=== PATIENT | male | born 1970 | race Caucasian/White ===

== ENCOUNTER 2017-12-04 13:55 | Emergency (ER) | payer OTHER ==
[~2017-12-04] VITALS: Ht 172.7 cm; Wt 77.1 kg
[2017-12-04] MEDS ORDERED: ROBAXIN500 MG PO (14:52)
[2017-12-04] MEDS ORDERED: NAPROSYN500 MG PO (14:52)
[2017-12-04 15:33] VITALS: BP 141/69
== END 2017-12-04 15:34 | disposition home or self-care (01) ==
LOC: M.ERS 13:55
DX: S16.1XXA Strain of muscle, fascia and tendon at neck level, initial encounter (principal); F17.200 Nicotine dependence, unspecified, uncomplicated; V43.54XA Car driver injured in collision with van in traffic accident, initial encounter; Y93.I9 Activity, other involving external motion; Y92.89 Other specified places as the place of occurrence of the external cause; Y99.8 Other external cause status

== ENCOUNTER 2017-12-06 14:07 | Emergency (ER) | payer OTHER ==
[~2017-12-06] VITALS: Ht 172.7 cm; Wt 77.1 kg
[~2017-12-06 14:07] MED LIST: NAPROSYN500 MG PO; ROBAXIN500 MG PO
[2017-12-06 14:17] VITALS: BP 105/72
[2017-12-06] MEDS ORDERED: HYDROCODONE-AP1 EAC6 PO (14:40)
== END 2017-12-06 14:51 | disposition home or self-care (01) ==
LOC: M.ERS 14:07
DX: S16.1XXA Strain of muscle, fascia and tendon at neck level, initial encounter (principal); M54.5 Low back pain; F17.200 Nicotine dependence, unspecified, uncomplicated; V89.2XXA Person injured in unspecified motor-vehicle accident, traffic, initial encounter; Y93.I9 Activity, other involving external motion; Y92.89 Other specified places as the place of occurrence of the external cause; Y99.8 Other external cause status

== ENCOUNTER 2018-05-09 22:12 | Emergency (ER) | payer OTHER ==
[~2018-05-09] VITALS: Ht 172.7 cm; Wt 72.6 kg
[~2018-05-09 22:12] MED LIST changes: +HYDROCODONE-AP1 EAC6 PO
[2018-05-09] MEDS ORDERED: CELEXA40 MG PO (22:21)
[2018-05-10] MEDS ORDERED: FLEXERIL PO (00:32)
[2018-05-10] MEDS ORDERED: NAPROSYN500 MG PO (00:32)
[2018-05-10] MEDS ORDERED: HYDROCODONE-AP1 EAC6 PO (00:32)
[2018-05-10 00:46] VITALS: BP 109/54
== END 2018-05-10 00:46 | disposition home or self-care (01) ==
LOC: M.ERS 22:12
DX: S20.212A Contusion of left front wall of thorax, initial encounter (principal); S00.01XA Abrasion of scalp, initial encounter; M79.642 Pain in left hand; Z86.19 Personal history of other infectious and parasitic diseases; V86.39XA Unspecified occupant of other special all-terrain or other off-road motor vehicle injured in traffic accident, initial encounter; Y93.89 Activity, other specified; Y92.89 Other specified places as the place of occurrence of the external cause; Y99.8 Other external cause status

== ENCOUNTER 2019-09-25 14:10 | Emergency (ER) | payer OTHER ==
[~2019-09-25] VITALS: Ht 172.7 cm; Wt 83.9 kg
[~2019-09-25 14:10] MED LIST changes: +CELEXA40 MG PO; +FLEXERIL PO
[2019-09-25] MEDS ORDERED: REMERON15 M2 PO (14:31)
[2019-09-25] MEDS ORDERED: TYLENOL WITH CO1 TA1 PO (15:41)
[2019-09-25 15:54] VITALS: BP 106/80
== END 2019-09-25 15:55 | disposition home or self-care (01) ==
LOC: M.ERS 14:10
DX: S61.212A Laceration without foreign body of right middle finger without damage to nail, initial encounter (principal); W22.8XXA Striking against or struck by other objects, initial encounter; Y93.89 Activity, other specified; Y92.89 Other specified places as the place of occurrence of the external cause; Y99.8 Other external cause status

== ENCOUNTER 2020-05-07 08:43 | Emergency (ER) | payer OTHER ==
[~2020-05-07] VITALS: Ht 172.7 cm; Wt 81.7 kg
[~2020-05-07 08:43] MED LIST changes: +REMERON15 M2 PO; +TYLENOL WITH CO1 TA1 PO
[2020-05-07 09:09] LABS: URINE BLOOD 3+ (Negative); URINE CLARITY SL CLOUDY; URINE COLOR YELLOW; URINE GLUCOSE-RANDOM NEGATIVE (Negative); URINE KETONES NEGATIVE (Negative); URINE LEUKOCYTES-REFLEX NEGATIVE (Negative); URINE NITRITE-REFLEX NEGATIVE (Negative); URINE PROTEIN TRACE (Negative); URINE SPECIFIC GRAVITY 1.015 (1.005-1.030); URINE UROBILINOGEN 0.2 E.U./dl (0.2-1.0)
[2020-05-07 09:12] LABS: ICTOTEST (BILI CONFIRMATORY) Negative (Negative); URINE BILIRUBIN 1+ (Negative)
[2020-05-07 09:23] LABS: AMORPHOUS PHOSPHATES Moderate /LPF (None Seen); BACTERIA-REFLEX None Seen /HPF (None Seen); CASTS None Seen /LPF (None Seen); SQUAMOUS 0-3 Few /LPF (0-3); URINE RBC >20 Many /HPF (0-2); URINE WBC-REFLEX 0-5 Rare /HPF (0-5)
[2020-05-07 09:30] LABS: ABSOLUTE BASOPHILS 0.1 thou/uL (0.0-0.2); ABSOLUTE EOSINOPHILS 0.5 thou/uL (0.0-0.7); ABSOLUTE LYMPHOCYTES 2.4 thou/uL (0.8-5.3); ABSOLUTE MONOCYTES 0.8 thou/uL (0.0-1.2); ABSOLUTE NEUTROPHILS 4.5 thou/uL (1.6-8.1); BASOPHILS 1.3 %; EOSINOPHILS 5.8 %; HEMATOCRIT 43.4 % (42.0-52.0); HEMOGLOBIN 15.4 gm/dL (14.0-18.0); LYMPHOCYTES 28.8 %; MCH 30.5 pg (26.0-34.0); MCHC 35.5 g/dL (28.0-37.0); MCV 85.8 fL (80.0-100.0); MONOCYTES 9.2 %; MPV 7.4 fl. (7.2-11.1); NUCLEATED RBCS 0 /100WBC; PLATELET COUNT* 257 thou/uL (150-400); POLYS 54.9 %; RBC 5.06 mil/uL (4.50-6.00); RDW-CV 13.2 % (10.5-14.5); WBC 8.2 thou/uL (4.0-11.0)
[2020-05-07 09:35] LABS: CALCIUM 8.9 mg/dL (8.5-10.1); CREATININE 1.2 mg/dL (0.6-1.3); POTASSIUM 3.8 mmol/L (3.5-5.1)
[2020-05-07 09:39] LABS: ALBUMIN 4.1 g/dL (3.4-5.0); TOTAL BILIRUBIN 0.2 mg/dL (<0.1-1.0)
[2020-05-07] MEDS ORDERED: TAMSULOSIN HCL0.4 MG PO (10:41)
[2020-05-07] MEDS ORDERED: PERCOCET 10-321 EAC1 PO (10:41)
[2020-05-07] MEDS ORDERED: CIPRO500 M1 PO (10:41)
[2020-05-07 10:49] VITALS: BP 135/86
== END 2020-05-07 10:50 | disposition home or self-care (01) ==
LOC: M.ERS 08:43
PROVIDERS: Family Medicine
DX: N20.0 Calculus of kidney (principal); Z90.49 Acquired absence of other specified parts of digestive tract; Z86.19 Personal history of other infectious and parasitic diseases

== ENCOUNTER 2020-10-26 12:29 | Emergency (ER) | payer BC ==
[~2020-10-26] VITALS: Ht 172.7 cm; Wt 81.7 kg
[~2020-10-26 12:29] MED LIST changes: +CIPRO500 M1 PO; +PERCOCET 10-321 EAC1 PO; +TAMSULOSIN HCL0.4 MG PO
[2020-10-26] MEDS ORDERED: OLANZAPINE5 M1 PO (12:43)
[2020-10-26] MEDS ORDERED: EPCLUSA 400 MG1 EACH PO (12:44)
[2020-10-26 12:52] LABS: URINE BILIRUBIN NEGATIVE (Negative); URINE BLOOD 1+ (Negative); URINE CLARITY CLEAR; URINE COLOR YELLOW; URINE GLUCOSE-RANDOM NEGATIVE (Negative); URINE KETONES NEGATIVE (Negative); URINE LEUKOCYTES NEGATIVE (Negative); URINE NITRITE NEGATIVE (Negative); URINE PROTEIN 1+ (Negative); URINE UROBILINOGEN 0.2 E.U./dl (0.2-1.0)
[2020-10-26 12:59] LABS: ABSOLUTE BASOPHILS 0.1 thou/uL (0.0-0.2); ABSOLUTE EOSINOPHILS 0.2 thou/uL (0.0-0.7); ABSOLUTE LYMPHOCYTES 1.6 thou/uL (0.8-5.3); ABSOLUTE MONOCYTES 0.6 thou/uL (0.0-1.2); ABSOLUTE NEUTROPHILS 8.7 thou/uL (1.6-8.1); BASOPHILS 0.9 %; EOSINOPHILS 1.5 %; HEMATOCRIT 44.7 % (42.0-52.0); HEMOGLOBIN 15.5 gm/dL (14.0-18.0); LYMPHOCYTES 14.5 %; MCH 29.5 pg (26.0-34.0); MCHC 34.6 g/dL (28.0-37.0); MCV 85.1 fL (80.0-100.0); MONOCYTES 5.1 %; MPV 7.5 fl. (7.2-11.1); NUCLEATED RBCS 0 /100WBC; PLATELET COUNT* 276 thou/uL (150-400); RBC 5.25 mil/uL (4.50-6.00); RDW-CV 13.6 % (10.5-14.5); WBC 11.2 thou/uL (4.0-11.0)
[2020-10-26 13:04] LABS: SQUAMOUS 0-3 Few /LPF (0-3); URINE RBC 3-10 Few /HPF (0-2); URINE WBC None Seen /HPF (0-5)
[2020-10-26 13:05] LABS: BACTERIA 1-9 Few /HPF (None Seen); CASTS None Seen /LPF (None Seen); CRYSTALS None Seen /LPF (None Seen)
[2020-10-26 13:12] LABS: CALCIUM 9.4 mg/dL (8.5-10.1); POTASSIUM 4.6 mmol/L (3.5-5.1)
[2020-10-26 13:16] LABS: ALBUMIN 3.9 g/dL (3.4-5.0); TOTAL BILIRUBIN 0.3 mg/dL (<0.1-1.0); TOTAL PROTEIN 7.9 g/dL (6.4-8.2)
[2020-10-26] MEDS ORDERED: BACTRIM DS TAB1 EACH PO (15:48)
[2020-10-26] MEDS ORDERED: MOBIC7.5 MG PO (15:48)
[2020-10-26] MEDS ORDERED: ONDANSETRON HCL4 M2 PO (15:48)
[2020-10-26 15:50] VITALS: BP 194/95
== END 2020-10-26 15:50 | disposition home or self-care (01) ==
LOC: M.ERS 12:29
PROVIDERS: Physician Assistant
DX: N39.0 Urinary tract infection, site not specified (principal); Z90.49 Acquired absence of other specified parts of digestive tract

== ENCOUNTER 2021-07-10 19:56 | Emergency (ER) | payer OTHER ==
[~2021-07-10] VITALS: Ht 172.7 cm; Wt 83.9 kg
[~2021-07-10 19:56] MED LIST changes: +BACTRIM DS TAB1 EACH PO; +EPCLUSA 400 MG1 EACH PO; +MOBIC7.5 MG PO; +OLANZAPINE5 M1 PO; +ONDANSETRON HCL4 M2 PO
[2021-07-10] MEDS ORDERED: HYDROCODON-ACE1 EAC7 PO (20:27)
[2021-07-10 20:37] VITALS: BP 138/89
== END 2021-07-10 20:38 | disposition home or self-care (01) ==
LOC: M.ERS 19:56
DX: K08.89 Other specified disorders of teeth and supporting structures (principal); Z90.49 Acquired absence of other specified parts of digestive tract; Z79.899 Other long term (current) drug therapy; Z88.5 Allergy status to narcotic agent

== ENCOUNTER 2021-09-05 12:05 | Emergency (ER) | payer OTHER ==
[~2021-09-05] VITALS: Ht 172.7 cm; Wt 81.7 kg
[~2021-09-05 12:05] MED LIST changes: +HYDROCODON-ACE1 EAC7 PO
[2021-09-05 14:49] LABS: URINE BILIRUBIN NEGATIVE (Negative); URINE BLOOD 2+ (Negative); URINE CLARITY CLEAR; URINE COLOR YELLOW; URINE GLUCOSE-RANDOM NEGATIVE (Negative); URINE KETONES 1+ (Negative); URINE LEUKOCYTES-REFLEX NEGATIVE (Negative); URINE NITRITE-REFLEX NEGATIVE (Negative); URINE PROTEIN 1+ (Negative); URINE SPECIFIC GRAVITY 1.025 (1.005-1.030); URINE UROBILINOGEN 0.2 E.U./dl (0.2-1.0)
[2021-09-05 15:06] LABS: BACTERIA-REFLEX None Seen /HPF (None Seen); CASTS None Seen /LPF (None Seen); CRYSTALS None Seen /LPF (None Seen); MUCUS 4-6 Moderate strn/LPF (None Seen); SQUAMOUS 0-3 Few /LPF (0-3); URINE WBC-REFLEX 0-5 Rare /HPF (0-5)
[2021-09-05 18:10] LABS: ABSOLUTE LYMPHOCYTES 1.3 thou/uL (0.8-5.3); ABSOLUTE MONOCYTES 0.5 thou/uL (0.0-1.2); ABSOLUTE NEUTROPHILS 8.3 thou/uL (1.6-8.1); BASOPHILS 0.5 %; EOSINOPHILS 0.4 %; HEMATOCRIT 46.4 % (42.0-52.0); HEMOGLOBIN 16.5 gm/dL (14.0-18.0); LYMPHOCYTES 12.8 %; MCHC 35.5 g/dL (28.0-37.0); MCV 87.5 fL (80.0-100.0); MONOCYTES 4.7 %; MPV 7.8 fl. (7.2-11.1); NUCLEATED RBCS 0 /100WBC; PLATELET COUNT* 251 thou/uL (150-400); POLYS 81.6 %; RDW-CV 12.3 % (10.5-14.5); WBC 10.2 thou/uL (4.0-11.0)
[2021-09-05 18:21] LABS: CALCIUM 9.2 mg/dL (8.5-10.1); CREATININE 0.9 mg/dL (0.6-1.3); POTASSIUM 3.6 mmol/L (3.5-5.1)
[2021-09-05 18:25] LABS: ALBUMIN 4.1 g/dL (3.4-5.0); TOTAL BILIRUBIN 0.5 mg/dL (<0.1-1.0); TOTAL PROTEIN 7.9 g/dL (6.4-8.2)
[2021-09-05] MEDS ORDERED: FLEXERIL PO (19:12)
[2021-09-05] MEDS ORDERED: HYDROCODON-ACE1 EAC7 PO (19:23)
[2021-09-05 19:56] VITALS: BP 163/98
== END 2021-09-05 19:56 | disposition home or self-care (01) ==
LOC: M.ERS 12:05
PROVIDERS: Nurse Practitioner Family
DX: R10.32 Left lower quadrant pain (principal); R30.9 Painful micturition, unspecified; R11.2 Nausea with vomiting, unspecified; Z87.442 Personal history of urinary calculi; Z90.49 Acquired absence of other specified parts of digestive tract; Z79.899 Other long term (current) drug therapy; Z88.5 Allergy status to narcotic agent; Z88.6 Allergy status to analgesic agent